=== PATIENT | male | born 1955 | race Caucasian/White ===

== ENCOUNTER 2017-09-09 10:27 | Inpatient (IN) | payer OTHER ==
[~2017-09-09] VITALS: Ht 198.1 cm; Wt 100.7 kg
[2017-09-09 11:05] VITALS: Ht 198.1 cm; Wt 100.7 kg
[2017-09-09 12:41] LABS: BASOPHIL % 0.2 % (0-2); PLATELET COUNT 272 x10^3mcL (130-400)
[2017-09-09 12:53] LABS: CALCIUM 9.2 mg/dL (8.5-10.1); CARBON DIOXIDE 26.3 mmol/L (21-32); CHLORIDE SERUM 97 mmol/L (98-107); GFR1 > 60 mL/min; GLUCOSE SERUM 96 mg/dL (74-106); SODIUM SERUM 133 mmol/L (136-145)
[2017-09-09 12:54] LABS: ALKALINE PHOSPHATASE 168 U/L (46-116); ALT/SGPT 55 U/L (16-63); AMYLASE 71 U/L (25-115); AST/SGOT 40 U/L (15-37); BILIRUBIN TOTAL 0.8 mg/dL (0.20-1.00); LIPASE 223 IU/L (73-393)
[2017-09-09 13:15] LABS: ALBUMIN 3.3 g/dL (3.4-5.0)
[2017-09-09 17:04] LABS: PHOSPHOROUS 4.2 mg/dL (2.5-4.9)
[2017-09-09 17:12] LABS: T3 TOTAL 0.85 ng/mL
[2017-09-09 17:15] LABS: FREE T4 1.25 ng/dL (0.76-1.46); T4(THYROXINE) 8.4 ug/dL (4.7-13.3)
[2017-09-09 18:04] VITALS: BP 187/105
[2017-09-09 21:02] VITALS: BP 148/90
[2017-09-09 21:14] LABS: microscopic required? NO
[2017-09-09 21:26] LABS: UA SPECIFIC GRAVITY <=1.005 (1.005-1.035); urine erythrocyte NEGATIVE (NEGATIVE)
[2017-09-09 21:33] LABS: AMPHETAMINE QUAL UR NONE DETECTED (NEG <=1000)
[2017-09-10 05:52] VITALS: BP 115/69
[2017-09-10 06:21] LABS: CARBON DIOXIDE 24.6 mmol/L (21-32); CHLORIDE SERUM 102 mmol/L (98-107); CREATININE SERUM 0.9 mg/dL (0.7-1.3); GFR1 > 60 mL/min; GLUCOSE SERUM 84 mg/dL (74-106); SODIUM SERUM 135 mmol/L (136-145)
[2017-09-10 07:56] LABS: BASOPHIL % 1.1 % (0-2); PLATELET COUNT 202 x10^3mcL (130-400); RED CELL DISTRIBUTION WIDTH 13.7 % (11.5-14.5)
[2017-09-10 08:47] VITALS: BP 116/74
[2017-09-10 13:28] VITALS: BP 95/59
[2017-09-10 16:41] VITALS: BP 116/77
[2017-09-10 21:37] VITALS: BP 111/68
[2017-09-11 05:38] VITALS: BP 101/64
[2017-09-11 06:58] LABS: CALCIUM 8.5 mg/dL (8.5-10.1); CHLORIDE SERUM 103 mmol/L (98-107); CREATININE SERUM 0.9 mg/dL (0.7-1.3); GFR1 > 60 mL/min; GLUCOSE SERUM 88 mg/dL (74-106); POTASSIUM SERUM 3.7 mmol/L (3.5-5.1); SODIUM SERUM 136 mmol/L (136-145)
[2017-09-11 08:08] LABS: BASOPHIL % 0.7 % (0-2); PLATELET COUNT 196 x10^3mcL (130-400); RED CELL DISTRIBUTION WIDTH 13.4 % (11.5-14.5)
[2017-09-11 08:45] VITALS: BP 105/67
[2017-09-11 12:40] VITALS: BP 122/80
[2017-09-11 17:12] VITALS: BP 128/77
[2017-09-11 23:04] VITALS: BP 136/87
[2017-09-12 05:58] VITALS: BP 115/69
[2017-09-12 06:50] LABS: CALCIUM 8.4 mg/dL (8.5-10.1); CARBON DIOXIDE 27.2 mmol/L (21-32); CHLORIDE SERUM 103 mmol/L (98-107); CREATININE SERUM 0.9 mg/dL (0.7-1.3); GFR1 > 60 mL/min; GLUCOSE SERUM 90 mg/dL (74-106); POTASSIUM SERUM 4.8 mmol/L (3.5-5.1); SODIUM SERUM 137 mmol/L (136-145)
[2017-09-12 07:34] LABS: BASOPHIL % 0.5 % (0-2); PLATELET COUNT 198 x10^3mcL (130-400); RED CELL DISTRIBUTION WIDTH 13.3 % (11.5-14.5)
[2017-09-12 17:04] VITALS: BP 152/84
[2017-09-12 21:41] VITALS: BP 116/79
[2017-09-13 05:01] VITALS: BP 98/66
[2017-09-13 06:36] LABS: CALCIUM 8.4 mg/dL (8.5-10.1); CARBON DIOXIDE 28.9 mmol/L (21-32); CHLORIDE SERUM 105 mmol/L (98-107); CREATININE SERUM 0.9 mg/dL (0.7-1.3); GFR1 > 60 mL/min; GLUCOSE SERUM 103 mg/dL (74-106); POTASSIUM SERUM 4.5 mmol/L (3.5-5.1); SODIUM SERUM 141 mmol/L (136-145)
[2017-09-13] MEDS ORDERED: PREVPAC1 KIT PO (07:51)
[2017-09-13] MEDS ORDERED: OMEPRAZOLE40 M1 PO (07:52)
[2017-09-13 07:53] LABS: BASOPHIL % 3.4 % (0-2); PLATELET COUNT 197 x10^3mcL (130-400); RED CELL DISTRIBUTION WIDTH 13.2 % (11.5-14.5)
[2017-09-13] MEDS ORDERED: HYD25 PO (07:53)
[2017-09-13] MEDS ORDERED: LOT20 PO (07:53)
[2017-09-13] MEDS ORDERED: ONDANSETRON4 M3 PO (07:54)
[2017-09-13 09:13] VITALS: BP 146/86
[2017-09-13] MEDS ORDERED: FERROUS SULFAT325 M2 PO (09:50)
[2017-09-13] MEDS ORDERED: NOR10T PO (09:51)
[2017-09-13 11:00] VITALS: BP 146/86
== END 2017-09-13 12:52 | disposition home or self-care (01) | DRG 444 ==
LOC: ED 10:27 → DU 16:11 → MU 16:11 → DU 17:55 → MU 09-11 10:48
PROVIDERS: Emergency Medicine; Family Medicine; Internal Medicine
PROC: 0FJB8ZZ Inspection of Hepatobiliary Duct, Via Natural or Artificial Opening Endoscopic (ICD-10-PCS; principal; 2017-09-11 11:00)
PROC: 0DB98ZX Excision of Duodenum, Via Natural or Artificial Opening Endoscopic, Diagnostic (ICD-10-PCS; 2017-09-11 11:00)
DX: K80.62 Calculus of gallbladder and bile duct with acute cholecystitis without obstruction (principal); K85.90 Acute pancreatitis without necrosis or infection, unspecified; E44.0 Moderate protein-calorie malnutrition; E87.1 Hypo-osmolality and hyponatremia; K22.10 Ulcer of esophagus without bleeding; K31.5 Obstruction of duodenum; K86.1 Other chronic pancreatitis; I10 Essential (primary) hypertension; F17.210 Nicotine dependence, cigarettes, uncomplicated; D53.9 Nutritional anemia, unspecified; E87.8 Other disorders of electrolyte and fluid balance, not elsewhere classified; I16.0 Hypertensive urgency; K44.9 Diaphragmatic hernia without obstruction or gangrene; K26.9 Duodenal ulcer, unspecified as acute or chronic, without hemorrhage or perforation; K57.10 Diverticulosis of small intestine without perforation or abscess without bleeding; R16.1 Splenomegaly, not elsewhere classified; F10.21 Alcohol dependence, in remission; Z95.820 Peripheral vascular angioplasty status with implants and grafts; Z79.82 Long term (current) use of aspirin
CPT/HCPCS: 43235; 74181; 83880; 84439; C9113; J0780; J1610; J1885; J2250; J2765; J3010; J7030; Q0092; Q9967

== ENCOUNTER 2017-09-20 17:12 | Emergency (ER) | payer OTHER ==
[~2017-09-20] VITALS: Ht 198.1 cm; Wt 99.8 kg
[~2017-09-20 17:12] MED LIST: FERROUS SULFAT325 M2 PO; HYD25 PO; LOT20 PO; NOR10T PO; OMEPRAZOLE40 M1 PO; ONDANSETRON4 M3 PO; PREVPAC1 KIT PO
[2017-09-20 17:15] VITALS: Ht 198.1 cm; Wt 99.8 kg
[2017-09-20 19:07] LABS: BASOPHIL % 0.8 % (0-2); PLATELET COUNT 252 x10^3mcL (130-400); RED CELL DISTRIBUTION WIDTH 14.1 % (11.5-14.5)
[2017-09-20 19:10] LABS: CALCIUM 8.7 mg/dL (8.5-10.1); CARBON DIOXIDE 30.4 mmol/L (21-32); CHLORIDE SERUM 99 mmol/L (98-107); CREATININE SERUM 1.1 mg/dL (0.7-1.3); GFR1 > 60 mL/min; GLUCOSE SERUM 110 mg/dL (74-106); POTASSIUM SERUM 4.1 mmol/L (3.5-5.1); SODIUM SERUM 135 mmol/L (136-145)
[2017-09-20 19:22] LABS: ALBUMIN 3.5 g/dL (3.4-5.0); ALKALINE PHOSPHATASE 86 U/L (46-116); ALT/SGPT 30 U/L (16-63); AST/SGOT 20 U/L (15-37); BILIRUBIN TOTAL 0.3 mg/dL (0.20-1.00)
[2017-09-20 21:01] VITALS: BP 114/75
== END 2017-09-20 21:01 | disposition home or self-care (01) ==
LOC: ED 17:12
PROVIDERS: Emergency Medicine
DX: J44.1 Chronic obstructive pulmonary disease with (acute) exacerbation (principal); I10 Essential (primary) hypertension; Z95.820 Peripheral vascular angioplasty status with implants and grafts
CPT/HCPCS: 83880; J3475; J7512; J7613; J7644

== ENCOUNTER 2018-02-02 00:07 | Emergency (ER) | payer OTHER ==
[~2018-02-02] VITALS: Ht 198.1 cm; Wt 101.6 kg
[2018-02-02 00:12] VITALS: Ht 198.1 cm; Wt 101.6 kg
[2018-02-02 01:23] LABS: BASOPHIL % 0.5 % (0-2); PLATELET COUNT 148 x10^3mcL (130-400); RED CELL DISTRIBUTION WIDTH 14.2 % (11.5-14.5)
[2018-02-02 01:27] LABS: CALCIUM 8.3 mg/dL (8.5-10.1); CARBON DIOXIDE 24.4 mmol/L (21-32); CHLORIDE SERUM 106 mmol/L (98-107); CREATININE SERUM 0.9 mg/dL (0.7-1.3); GFR1 > 60 mL/min; GLUCOSE SERUM 88 mg/dL (74-106); POTASSIUM SERUM 3.9 mmol/L (3.5-5.1); SODIUM SERUM 141 mmol/L (136-145)
[2018-02-02 01:32] LABS: ALBUMIN 3.9 g/dL (3.4-5.0); ALKALINE PHOSPHATASE 62 U/L (46-116); ALT/SGPT 21 U/L (16-63); AST/SGOT 22 U/L (15-37); BILIRUBIN TOTAL 0.57 mg/dL (0.20-1.00); TOTAL PROTEIN, SERUM 7.5 g/dL (6.4-8.2)
[2018-02-02 01:54] LABS: microscopic required? NO
[2018-02-02 02:23] LABS: UA SPECIFIC GRAVITY <=1.005 (1.005-1.035); urine erythrocyte NEGATIVE (NEGATIVE)
[2018-02-02 02:32] LABS: AMPHETAMINE QUAL UR NONE DETECTED (See below)
[2018-02-02 03:14] VITALS: BP 183/115
== END 2018-02-02 03:14 | disposition home or self-care (01) ==
LOC: ED 00:07
PROVIDERS: Emergency Medicine
DX: J44.1 Chronic obstructive pulmonary disease with (acute) exacerbation (principal); I10 Essential (primary) hypertension
CPT/HCPCS: 83880; 85378; J2930; J7620

== ENCOUNTER 2018-04-03 19:36 | Emergency (ER) | payer OTHER ==
[2018-04-03 19:40] VITALS: Ht 198.1 cm
[2018-04-03 22:37] VITALS: BP 140/102
== END 2018-04-03 22:37 | disposition home or self-care (01) ==
LOC: ED 19:36
DX: J44.1 Chronic obstructive pulmonary disease with (acute) exacerbation (principal); I10 Essential (primary) hypertension
CPT/HCPCS: J7512; J7613; J7644; Q0092

== ENCOUNTER 2018-07-14 22:47 | Observation (INO) | payer OTHER ==
[~2018-07-14] VITALS: Ht 198.1 cm; Wt 103.4 kg
[2018-07-14 23:13] VITALS: Ht 198.1 cm; Wt 103.4 kg
[2018-07-15] VITALS (7 sets, daily range): BP systolic 132–165; BP diastolic 84–94
[2018-07-15 00:12] LABS: BASOPHIL % 0.5 % (0-2); PLATELET COUNT 179 x10^3mcL (130-400); RED CELL DISTRIBUTION WIDTH 13.7 % (11.5-14.5)
[2018-07-15 00:22] LABS: CALCIUM 8.5 mg/dL (8.5-10.1); CHLORIDE SERUM 103 mmol/L (98-107); CREATININE SERUM 1.1 mg/dL (0.7-1.3); GFR1 > 60 mL/min; GLUCOSE SERUM 98 mg/dL (74-106); POTASSIUM SERUM 3.8 mmol/L (3.5-5.1); SODIUM SERUM 136 mmol/L (136-145)
[2018-07-15 00:26] LABS: ALBUMIN 3.7 g/dL (3.4-5.0); ALKALINE PHOSPHATASE 66 U/L (46-116); ALT/SGPT 25 U/L (16-63); AST/SGOT 16 U/L (15-37); BILIRUBIN TOTAL 0.5 mg/dL (0.20-1.00); TOTAL PROTEIN, SERUM 7.5 g/dL (6.4-8.2)
[2018-07-15] MEDS ORDERED: GOOD SENSE ASPI81 M3 (02:49)
[2018-07-15] MEDS ORDERED: PLA75 PO (17:42)
== END 2018-07-15 19:39 | disposition home or self-care (01) | DRG 202 ==
LOC: ED 22:47 → DU 07-15 01:54
PROVIDERS: Emergency Medicine; ADMIT Internal Medicine Pulmonary Disease
DX: J20.9 Acute bronchitis, unspecified (principal); J44.1 Chronic obstructive pulmonary disease with (acute) exacerbation; I10 Essential (primary) hypertension; I73.9 Peripheral vascular disease, unspecified; F17.210 Nicotine dependence, cigarettes, uncomplicated
CPT/HCPCS: 83880; 85378; G0378; J1650; J2920; J2930; J7613; J7620; J7644; Q0092

== ENCOUNTER 2018-08-11 10:59 | Emergency (ER) | payer OTHER ==
[~2018-08-11] VITALS: Ht 198.1 cm; Wt 102.5 kg
[~2018-08-11 10:59] MED LIST changes: +GOOD SENSE ASPI81 M3; +PLA75 PO
[2018-08-11 11:06] VITALS: Ht 198.1 cm; Wt 102.5 kg
[2018-08-11 13:32] LABS: BASOPHIL % 0.7 % (0-2); PLATELET COUNT 268 x10^3mcL (130-400); RED CELL DISTRIBUTION WIDTH 12.6 % (11.5-14.5)
[2018-08-11 13:38] LABS: CALCIUM 9.5 mg/dL (8.5-10.1); CARBON DIOXIDE 29.8 mmol/L (21-32); CHLORIDE SERUM 97 mmol/L (98-107); GFR1 > 60 mL/min; GLUCOSE SERUM 94 mg/dL (74-106); SODIUM SERUM 135 mmol/L (136-145)
[2018-08-11 13:42] LABS: ALBUMIN 3.6 g/dL (3.4-5.0); ALKALINE PHOSPHATASE 73 U/L (46-116); ALT/SGPT 24 U/L (16-63); AST/SGOT 19 U/L (15-37); BILIRUBIN TOTAL 0.41 mg/dL (0.20-1.00); TOTAL PROTEIN, SERUM 7.6 g/dL (6.4-8.2)
[2018-08-11 15:22] LABS: AMPHETAMINE QUAL UR NONE DETECTED (See below)
[2018-08-11 19:19] VITALS: BP 127/93
== END 2018-08-11 19:19 | disposition short-term general hospital (02) ==
LOC: ED 10:59
PROVIDERS: Emergency Medicine
DX: M62.261 Nontraumatic ischemic infarction of muscle, right lower leg (principal); F17.210 Nicotine dependence, cigarettes, uncomplicated; I10 Essential (primary) hypertension; Z71.6 Tobacco abuse counseling
CPT/HCPCS: 99406; J0696; J2270; J2405; J3010; J7030; Q0092; Q9967

== ENCOUNTER 2019-06-25 01:07 | Emergency (ER) | payer OTHER ==
[~2019-06-25] VITALS: Ht 198.1 cm; Wt 136.1 kg
[2019-06-25 01:11] VITALS: Ht 198.1 cm; Wt 136.1 kg
[2019-06-25 03:28] VITALS: BP 144/94
== END 2019-06-25 04:13 | disposition home or self-care (01) ==
LOC: ED 01:07
DX: J40 Bronchitis, not specified as acute or chronic (principal); I10 Essential (primary) hypertension; Z98.890 Other specified postprocedural states
CPT/HCPCS: 99406; J7512; J7613; J7644; Q0092

== ENCOUNTER 2019-07-18 04:59 | Inpatient (IN) | payer OTHER ==
[~2019-07-18] VITALS: Ht 198.1 cm; Wt 106.1 kg
[2019-07-18 05:04] VITALS: Ht 198.1 cm; Wt 106.1 kg
--- NOTE | 2019-07-18 05:08 | NUR ---
MD WRIGHT AT BEDSIDE FOR MSE
--- NOTE | 2019-07-18 05:08 | NUR ---
ENOCH ERT AT BEDSIDE FOR EKG
--- NOTE | 2019-07-18 05:08 | NUR ---
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 PT IS SPEAKING IN SHORT 2 TO 3 WORD SENTENCES. PT IS MOUTH BREATHING AND TAKING GASPS FOR AIR WITH SUBSTERNAL RETRACTIONS AND ABDOMINAL MUSCLE ACCESSORY USE NOTED. PT STATES THAT HE HAS BEEN SICK WITH A COLD FOR THE LAST FEW WEEKS WITH A LOT OF WHITE PHLEGM. PT DENIES ANY CARDIAC OR RESPIRATORY HX BESIDES HTN. PT AXO X4. PT CONNECTED TO FULL CM AND PULSE OX MONITORS AT THIS TIME. PT HAS AUDIBLE INSPIRATORY AND EXPIRATORY WHEEZE IN ALL CLEMENT AT THIS TIME. PT DENIES MEDICATION USE AT HOME. PT SITTING HIGH FOWLERS IN BED TO PROMOTE DECREASE WORK OF BREATHING. RT AT BEDSIDE FOR BREATHING TX. WILL CONTINUE TO MONITOR
--- NOTE | 2019-07-18 05:19 | NUR ---
PT STATES THAT HE SMOKES APPROX 1 PACK OF CIAGARETTES PER DAY AND THAT IS CUT DOWN SIGNIFICANTLY FROM WHAT HE USED TO SMOKE PER PT
--- NOTE | 2019-07-18 05:24 | NUR ---
PT STATES "OH YOU WOULD NOT BELIEVE HOW MUCH BETTER I FEEL"
--- NOTE | 2019-07-18 05:31 | NUR ---
PER MD DO NOT GIVE ANY MORE NITRO DUE TO PT CURRENT BP AND RELIEF FROM PAIN ONLY 1 OF 3 NITRO GIVEN
[2019-07-18 05:34] LABS: BASOPHIL % 0.5 % (0-2); PLATELET COUNT 163 x10^3mcL (130-400); RED CELL DISTRIBUTION WIDTH 13.3 % (11.5-14.5)
[2019-07-18 05:53] LABS: CARBON DIOXIDE 25.9 mmol/L (21-32); CHLORIDE SERUM 106 mmol/L (98-107); POTASSIUM SERUM 4.3 mmol/L (3.5-5.1); SODIUM SERUM 138 mmol/L (136-145)
[2019-07-18 05:54] LABS: ALBUMIN 3.4 g/dL (3.4-5.0); ALKALINE PHOSPHATASE 66 U/L (46-116); ALT/SGPT 22 U/L (16-63); AST/SGOT 18 U/L (15-37); BILIRUBIN TOTAL 0.4 mg/dL (0.20-1.00); CALCIUM 8.1 mg/dL (8.5-10.1); CREATININE SERUM 1.1 mg/dL (0.7-1.3); GFR1 > 60 mL/min; GLUCOSE SERUM 101 mg/dL (74-106); TOTAL PROTEIN, SERUM 7.1 g/dL (6.4-8.2)
--- NOTE | 2019-07-18 05:56 | NUR ---
LAB CALLED FOR BLOOD CULTURE DRAW PT STATES THAT HE IS SUPPOSED TO TAKE MEDICATION AT HOME FOR HIS BLOOD PRESSURE HOWEVER HE DOES NOT TAKE IT AND HE DOES NOT KNOW WHAT IT IS
--- NOTE | 2019-07-18 07:07 | NUR ---
REPORT RECEIVED FROM HENNY Negrete RN TO ASSUME CARE OF PT.
--- NOTE | 2019-07-18 07:21 | NUR ---
REPORT CALLED TO CHAVA GALLARDO. ALL QUESTIONS AND CONCERNS ADDRESSED AT THIS TIME.
--- NOTE | 2019-07-18 07:30 | NUR ---
RECEIVED PATIENT FROM ED. PATIENT WAS SEEN AMBULATING TO BED WITHOUT ISSUE. PATIENT DENIES ANY SOB WELL WITHOUT NC. INFORMED PATIENT TO PRESS CALL LIGHT IF PATIENT FEELS SOB. PATIENT IS A&OX4, FOLLOWS COMMANDS AND COOPERATES WELL. TELE #[id number], NSR, DENIES CHEST PAIN. PERIPHERAL PULSES PALAPBLE W/ TRACE SIGNS OF EDEMA IN BLE. LUNG SOUNDS CTA EXCEPT FOR BASES WHICH HAVE EXPIRATORY WHEEZES. PT OTHERWISE DENIES ANY SOB, RESPIRATORY DISTRESS, OR USE OF ACCESSORY MUSCLES. NORMAOCTIVE BSX4. LAST BM WAS ON 07/17/19. VOIDS WELL. AMBULATORY. STATES HEADACHE. WILL GIVE TYLENOL WITH OTHER MEDICATIONS. ALL QUESTIONS AND CONCERNS ADDRESSED. PATIENT STATES THAT HE IS WILLING TO WAIT FOR DOCTOR FOR ANY RECOMMENDATIONS. OTHERWISE, WANTS TO LEAVE. WILL CONTINUE TO MONITOR.
[2019-07-18 07:44] VITALS: BP 155/90
[2019-07-18 08:25] VITALS: BP 148/97
[2019-07-18 12:02] VITALS: BP 158/101
[2019-07-18 13:20] VITALS: BP 155/90
--- NOTE | 2019-07-18 14:34 | NUR ---
PATIENT HAS RECEIVED DISCHARGE INSTRUCTIONS TO GO HOME. PATIENT STATES THAT DOCTOR DID NOT PRESCRIBE INHALER FOR PATIENT. INQUIRED DR. BOSE FROM [facility] [place] BOSE ORDERED COMBIVENT HFA 2 PUFFS QID DISPENSE 1 TO BE WRITTEN ON PATIENT'S ORIGINAL PRESCRIPTION. PATIENT DENIES HAVING ANY PAIN OR DISCOMFORT AT THIS TIME. IV HAS BEEN DC. TELE HAS BEEN DC.
--- NOTE | 2019-07-18 14:42 | NUR ---
PATIENT HAS BEEN TRANSFFERED TO [facility] AMBULATING WITH ESOL INSTRUCTOR.
== END 2019-07-18 14:41 | disposition home or self-care (01) | DRG 192 ==
LOC: ED 04:59 → DU 06:07
PROVIDERS: Emergency Medicine; ADMIT Internal Medicine Pulmonary Disease
DX: J44.1 Chronic obstructive pulmonary disease with (acute) exacerbation (principal); I10 Essential (primary) hypertension; F17.210 Nicotine dependence, cigarettes, uncomplicated; I73.9 Peripheral vascular disease, unspecified; Z71.6 Tobacco abuse counseling; Z79.899 Other long term (current) drug therapy
CPT/HCPCS: 83880; 87804; G0378; J1650; J2920; J2930; J7613; J7620; J7644; Q0092